=== PATIENT | male | born 1990 | race Caucasian/White ===

== ENCOUNTER 2024-09-17 08:41 | Outpatient (OUT) | payer OTHER, SELFPAY ==
--- OUTSIDE RECORDS SUMMARY | 2024-09-17 08:52 | XMS_ITS | Clinical Summary ---
Author Organization [facility] Address [address] [place] [address] Care Team Providers Care Power Plant Technician Name Role Phone Unavailable Primary Care Provider Unavailabl e Social History Tobacco Use Types Packs/Day Years Used Date Smoking Tobacco: Never Assessed Sex and Gender Information Value Date Recorded Sex Assigned at Not on file Legal Sex Male 6:39 PM EDT Gender Identity Not on file Sexual Orientation Not on file Last Filed Vital Signs Vital Sign Reading Time Taken Comments Blood Pressure 130/74 11/26/2019 12:00 PM EDT Pulse - - Temperature - - Respiratory Rate - - Oxygen Saturation - - Inhaled Oxygen Concentration - - Weight 135 kg (297 lb) 11/26/2019 12:00 PM EDT Height 190.5 cm (6' 3 ) 11/26/2019 12:00 PM EDT Body Mass Index 37.12 11/26/2019 12:00 PM EDT Plan of Treatment Not on file
--- OUTSIDE RECORDS SUMMARY | 2024-09-17 08:52 | XMS_ITS | Clinical Summary ---
Author Organization [employer] [facility] Address [id number] [address] [place] [address] Care Team Providers Care [employer] A[employer] Director Name Role Phone Mahi Ahumada MD Primary Care Provider [phone] Allergies Active Allergy Reactions Criticality Noted Date Comments Sulfa (Sulfonamide Antibiotics) 05/12/2022 Other reaction(s): Hives Sulfamethoxazole-Trimethop rim 05/12/2022 Other reaction(s): Unknown Medications bisoprolol-hydro CHLOROthiazide (ZIAC) 10-6.25 mg per tablet Take 1 tablet by mouth in the morning. 03/26/2022 Active Active Problems No known active problems Family History Medical History Relation Name Comments Hypertension Father Cataracts Mother Diabetes Mother Type 2 Hypertension Mother Relation Name Status Comments Father Alive Mother Alive Social History Tobacco Use Types Packs/Day Years Used Date Smoking Tobacco: Some Days Cigarettes Smokeless Tobacco: Never Tobacco Cessation:Ready to Q uit: Not Asked; Counseling Given: Not Answered Alcohol Use Standard Drinks/Week Comments Not Currently 0 (1 standard drink = 0.6 oz pur e alcohol) Hunger Screening Answer Date Recorded Within the past 12 months we worried whether our food would run out before we got money to buy more. Never True 05/12/2022 Within the past 12 months th e food we bought just didn't last and we didn't have money to get more. Never True 05/12/2022 Sex and Gender Information Value Date Recorded Sex Assigned at Not on file Legal Sex Male 11:19 AM EDT Gender Identity Not on file Sexual Orientation Not on file Last Filed Vital Signs Vital Sign Reading Time Taken Comments Blood Pressure 194/110 05/12/2022 1:19 PM EDT Pulse 85 05/12/2022 1:19 PM EDT Temperature - - Respiratory Rate - - Oxygen Saturation - - Inhaled Oxygen Concentration - - Weight 132.4 kg (291 lb 12.8 oz) 05/12/2022 1:19 PM EDT Height 190.5 cm (6' 3 ) 05/12/2022 1:19 PM EDT Body Mass Index 36.47 05/12/2022 1:19 PM EDT Plan of Treatment Health Maintenance Due Date Last Done Comments DTaP,Tdap and Td Vaccines (6 - Tdap) 06/21/2003 10/24/1997, 03/01/1994, 03/02/1993, Additional history exists Depression Screening 2004 Tobacco Screening 2004 Adult BMI Screening 05/13/2023 05/12/2022 Influenza Vaccine 10/22/2024 Medical Devices Not on file Insurance [employer] Care Teams Council On Aging Director Relationship Specialty Start Date End Date Mahi Ahumada MD PCP - General Family Medicine 02/08/22
[2024-09-17 10:34] LABS: Alanine Aminotransferase 68 U/L (16-63); Albumin Globulin Ratio 1.4; Albumin Level 4.7 g/dL (3.4-5.0); Alkaline Phosphatase 90 U/L (46-116); Aspartate Amino Transferase 31 U/L (15-37); Calcium 11.4 mg/dL (8.5-10.1); Globulin 3.4 g/dL; Total Protein 8.1 g/dL (6.4-8.2)
== END 2024-09-17 08:42 | disposition home or self-care (01) ==
LOC: LAB 08:50
PROVIDERS: PCP Nurse Practitioner; Visit Provider Nurse Practitioner
DX: R79.89 Other specified abnormal findings of blood chemistry (principal)
CPT/HCPCS: 36415; 80076; 82310